=== PATIENT | male | born 1960 | race Caucasian/White ===

== ENCOUNTER 2024-01-12 17:01 | Emergency (ER) | payer OTHER ==
[~2024-01-12 17:01] MED LIST: Iopamidol 370 76% 100 ML VIAL ONE
[2024-01-12] MEDS ORDERED: Lorazepam 2 MG/ML VIAL ONE (18:02)
[2024-01-12 18:25] LABS: Anion Gap 15 mmol/L (10-20); BUN (Urea Nitrogen) 28 mg/dL (8.4-25.7); Calc. Creatinine Clearance 0 mL/min (70-130); Calcium 9.8 mg/dL (7.8-10.44); Carbon Dioxide 23 mmol/L (23-31); Chloride 104 mmol/L (98-107); Estimated GFR 37; Glucose 118 mg/dL (80-115); Potassium 3.4 mmol/L (3.5-5.1); Sodium 139 mmol/L (136-145)
== END 2024-01-12 19:55 | disposition home or self-care (01) ==
LOC: CSHERS 17:01
DX: R51.9 Headache, unspecified (principal); H53.2 Diplopia; D09.19 Carcinoma in situ of other urinary organs; I10 Essential (primary) hypertension; I48.91 Unspecified atrial fibrillation; Z79.01 Long term (current) use of anticoagulants
CPT/HCPCS: 70470; 80048; 96374; J2060; Q9967

== ENCOUNTER 2024-03-01 12:54 | Emergency (ER) | payer OTHER ==
[2024-03-01 13:51] LABS: #Eosinphils 0.06 10x3/uL (0.0-0.5); #Monocytes 0.61 10x3/uL (0.0-1.1); #Neutrophils 6.79 10x3/uL (1.5-8.4); %Basophils 1.1 % (0.0-2.0); %Eosinophils 0.7 % (0.0-6.0); %Lymphocytes 12.6 % (18.0-47.0); %Monocytes 6.7 % (0.0-10.0); Hematocrit 37.2 % (38.8-50.0); Mean Corpuscular HGB CONC 34.9 g/dL (32.0-36.0); Mean Corpuscular Hemoglobin 28.4 pg (27.0-33.0); Mean Corpuscular Volume 81.2 fL (81.2-95.1); Mean Platelet Volume 10.4 fL (7.4-10.4); Platelet Count 171 10x3/uL (150-450); RBC Distribution Width 17.2 % (11.5-14.5); Red Blood Cell (RBC) Count 4.58 10x6/uL (4.32-5.72); White Blood Cell (WBC) Count 9.2 10x3/uL (3.5-10.5)
[2024-03-01 13:57] LABS: ALT (SGPT) 35 U/L (8-55); AST (SGOT) 26 U/L (5-34); Albumin 2.6 g/dL (3.4-4.8); Alkaline Phosphatase 65 U/L (40-110); Anion Gap 15 mmol/L (10-20); BUN (Urea Nitrogen) 14 mg/dL (8.4-25.7); Bilirubin, Total 1.4 mg/dL (0.2-1.2); Calc. Creatinine Clearance 0 mL/min (70-130); Calcium 8.4 mg/dL (7.8-10.44); Carbon Dioxide 26 mmol/L (23-31); Chloride 97 mmol/L (98-107); Estimated GFR 41; Globulin 2.3 g/dL (2.4-3.5); Glucose 92 mg/dL (80-115); Lipase 97 U/L (8-78); Potassium 2.8 mmol/L (3.5-5.1); Protein, Total 4.9 g/dL (5.8-8.1); Sodium 135 mmol/L (136-145)
[2024-03-01 14:02] LABS: Troponin I 0.022 ng/mL (< 0.028)
[2024-03-01] MEDS ORDERED: Potassium Chloride 20 MEQ TAB ONE (14:07)
[2024-03-01] MEDS ORDERED: NOREPINEPHRINE 8 MG/250 ML-D5W 250 ML ONE (14:07)
[2024-03-01] MEDS ORDERED: Hydrocortisone Sod Succ/PF 100 mg/2 ml Vial ONE (14:08)
[2024-03-01] MEDS ORDERED: Iopamidol 300 61% 100 ML VIAL FS ONE (14:42)
[2024-03-01] MEDS ORDERED: NS 0.9% w/ 20 MEQ KCL 1,000 ML ONE (15:10)
[2024-03-01] MEDS ORDERED: Magnesium 2 GM/50 ML BAG (IN WATER) ONE (15:10)
[2024-03-01 15:41] LABS: Magnesium 1.1 mg/dL (1.6-2.6)
[2024-03-01 16:22] LABS: Actual Bicarbonate (HCO3v) 26.5 mEq/L (22-28); Analyzer IN Cardio CS ER; Base Excess 2.6 mEq/L (-2 - +2); Chloride (VBG) 100 mmol/L (98-106); Critical Notified Whom: PICKBR; Hematocrit-VBG 35 % (42.0-52.0); Hemoglobin (Hb) 11.8 g/dL (13.1-17.2); Puncture Site Other Site; RapidComm Collect By CBN; Sodium 135 mmol/L (133-146); pH (venous) 7.459 (7.32-7.43)
[2024-03-02] MEDS ORDERED: Sevoflurane 250 ML INH ANEST BOTTLE ONE (06:59)
== END 2024-03-01 18:13 | disposition short-term general hospital (02) ==
LOC: CSHERS 12:54
DX: I95.9 Hypotension, unspecified (principal); N17.9 Acute kidney failure, unspecified; E87.6 Hypokalemia; E83.42 Hypomagnesemia; I10 Essential (primary) hypertension; Z79.01 Long term (current) use of anticoagulants; Z79.899 Other long term (current) drug therapy
CPT/HCPCS: 36556; 71260; 74177; 80053; 82805; 83605; 83690; 83735; 83880; 84484; 85025; 87040; 93005; 96361; 96365; 96366; 96375; J1720; J3475; J3480; Q9967